=== PATIENT | male | born 1990 | race Caucasian/White ===

== ENCOUNTER → 2018-10-07 | Outpatient (CLI) | payer BC ==
[~2018-10-07] MED LIST: LEXAPRO 5MG5 MG PO
== END ==
LOC: COL.RAD 13:26
DX: N50.3 Cyst of epididymis (principal); N50.89 Other specified disorders of the male genital organs

== ENCOUNTER 2020-07-30 14:34 | Outpatient (RCR) | payer OTHER | END 2020-10-22 | disposition home or self-care (01) | LOC: WSOH | DX: S16.1XXA Strain of muscle, fascia and tendon at neck level, initial encounter (principal); Y99.0 Civilian activity done for income or pay ==